=== PATIENT | female | born 1990 | race African-American/Black ===

== ENCOUNTER 2019-07-25 09:51 | Emergency (ER) | payer OTHER ==
[~2019-07-25] VITALS: Ht 162.6 cm; Wt 89.1 kg
--- NOTE | 2019-07-25 10:07 | NUR ---
DR PEÑA INFORMED OF PATIENT'S RESOLVED CHEST PAIN: NO ORDERS, NO LABS ORDERED
[2019-07-25] MEDS ORDERED: cephalexin 500mg capsule PO ONE (10:15)
[2019-07-25] MEDS ORDERED: predniSONE 20 mg tablet PO ONE (10:15)
[2019-07-25] MEDS ORDERED: CEPH500C5 PO (10:16)
[2019-07-25] MEDS ORDERED: PRED20TA PO (10:16)
[2019-07-25 10:26] VITALS: BP 148/68
--- NOTE | 2019-07-25 10:40 | NUR ---
PATIENT WILL FOLLOW UP WITH PMD AT [facility].
== END 2019-07-25 12:00 | disposition home or self-care (01) ==
LOC: ER 09:52
DX: S50.861A Insect bite (nonvenomous) of right forearm, initial encounter (principal); L03.113 Cellulitis of right upper limb; R07.89 Other chest pain; Z88.2 Allergy status to sulfonamides; Z88.8 Allergy status to other drugs, medicaments and biological substances; Z79.899 Other long term (current) drug therapy; W57.XXXA Bitten or stung by nonvenomous insect and other nonvenomous arthropods, initial encounter; Y93.89 Activity, other specified; Y92.89 Other specified places as the place of occurrence of the external cause; Y99.8 Other external cause status
CPT/HCPCS: 99283; J7512

== ENCOUNTER 2020-10-27 09:28 | Emergency (ER) | payer BC, OTHER ==
[~2020-10-27] VITALS: Ht 162.6 cm; Wt 89.0 kg
[2020-10-27 09:50] VITALS: BP 132/84
[2020-10-27] MEDS ORDERED: guaiFENesin ER 600mg tablet PO STA (09:53)
[2020-10-27] MEDS ORDERED: benzonatate 100mg capsule PO ONE (09:55)
[2020-10-27] MEDS ORDERED: GUAI-652 PO (11:01)
[2020-10-27] MEDS ORDERED: BENZ-16 PO (11:01)
== END 2020-10-27 11:11 | disposition home or self-care (01) ==
LOC: ER 09:29
DX: J06.9 Acute upper respiratory infection, unspecified (principal); B97.89 Other viral agents as the cause of diseases classified elsewhere; Z20.822 Contact with and (suspected) exposure to COVID-19; J45.909 Unspecified asthma, uncomplicated; Z88.2 Allergy status to sulfonamides; Z88.8 Allergy status to other drugs, medicaments and biological substances
CPT/HCPCS: 87635; 99283; C9803

== ENCOUNTER 2023-05-31 08:35 | Emergency (ER) | payer BC ==
[~2023-05-31] VITALS: Ht 162.6 cm; Wt 89.4 kg
[~2023-05-31 08:35] MED LIST: GUAI-652 PO
[2023-05-31] MEDS ORDERED: acetaminophen 325mg tablet PO ONE (08:40)
--- NOTE | 2023-05-31 08:57 | NUR ---
MSE COMPLETED BY DR LO
[2023-05-31] MEDS ORDERED: ipratropium/albuterol 3ml nebule NEB PRN (09:25)
[2023-05-31] MEDS ORDERED: ketorolac trometh. 30mg/ml inj. IM STA (09:27)
[2023-05-31] MEDS ORDERED: metoclopramide 10mg tablet PO ONE (09:30)
[2023-05-31] MEDS ORDERED: diphenhydrAMINE 25mg capsule PO ONE (09:30)
[2023-05-31] MEDS ORDERED: ROBDML PO (09:32)
[2023-05-31] MEDS ORDERED: PRED20TA PO (09:32)
[2023-05-31] MEDS ORDERED: IBUP-1984 PO (09:32)
[2023-05-31 09:51] VITALS: PULSE 75; RESP 16; O2SAT 99
[2023-05-31 09:57] VITALS: PULSE 81; RESP 1; O2SAT 99
[2023-05-31 10:25] VITALS: BP 134/76; PULSE 80; RESP 17; TEMP 98.8; O2SAT 99
== END 2023-05-31 10:43 | disposition home or self-care (01) ==
LOC: ER 08:36
DX: U07.1 COVID-19 (principal); R51.9 Headache, unspecified; J45.909 Unspecified asthma, uncomplicated; Z79.899 Other long term (current) drug therapy; Z88.2 Allergy status to sulfonamides; Z88.8 Allergy status to other drugs, medicaments and biological substances
CPT/HCPCS: 36415; 71045; 87811; 94640; 96372; 99284; J1885; Q0163; 94760

== ENCOUNTER → 2023-08-17 | Outpatient (CLI) | payer BC ==
[2023-08-17 11:26] LABS: BASOPHILS % (AUTO) 0.7 % (0-1); EOSINOPHILS # (AUTO) 0.2 X10'3 (0-0.9); HEMATOCRIT 35.5 % (35.0-45.0); HEMOGLOBIN 11.3 g/dl (12.0-16.0); LYMPHOCYTES # (AUTO) 2.4 X10'3 (1.1-4.8); LYMPHOCYTES % (AUTO) 39.2 % (21-51); MEAN CORPUSCULAR HEMOGLOBIN 23.9 PG (27.0-31.0); MEAN CORPUSCULAR HGB CONC 31.9 g/dL (33.0-36.5); MEAN CORPUSCULAR VOLUME 75.2 FL (78-98); MEAN PLATELET VOLUME 9.7 FL (7.4-10.4); MONOCYTES # (AUTO) 0.4 X10'3 (0-0.9); MONOCYTES % (AUTO) 6.9 % (2-12); NEUTROPHILS % (AUTO) 50.2 % (42-75); PLATELET COUNT 264 X10'3 (140-440); RED BLOOD COUNT 4.72 X10'6 (4.20-5.60); RED CELL DISTRIBUTION WIDTH 14.3 % (11.5-14.5)
[2023-08-17 11:53] LABS: POTASSIUM 4.1 MMOL/L (3.5-5.1); SODIUM 141 MMOL/L (135-145)
[2023-08-17 12:14] LABS: % IRON SATURATION 9 % (11-46); IRON 35 UG/DL (49-151); TOTAL IRON BINDING CAPACITY 381 UG/DL (259-388)
[2023-08-17 12:33] LABS: ALANINE AMINOTRANSFERASE 19 U/L (12-78); ALBUMIN 3.4 G/DL (3.4-5.0); ALKALINE PHOSPHATASE 40 IU/L (46-116); ANION GAP 9 (8-16); ASPARTATE AMINO TRANSFERASE 16 U/L (10-37); BILIRUBIN,TOTAL 0.2 MG/DL (0.1-1.0); BLOOD UREA NITROGEN 9 MG/DL (7-18); BUN/CREATININE RATIO 12.9 (10.0-20.0); CALCIUM 8.2 MG/DL (8.5-10.1); CHLORIDE 107 MMOL/L (99-107); CHOL/HDL RATIO 3.3 (0.00-4.99); CHOLESTEROL 180 MG/DL (0-200); GLUCOSE 95 MG/DL (70-104); HDL CHOLESTEROL 54 MG/DL (35-60); LDL CHOLESTEROL 102 MG/DL (50-100); TOTAL CARBON DIOXIDE 24.6 MMOL/L (24-32); TOTAL PROTEIN 6.7 G/DL (6.4-8.2); TRIGLYCERIDES 98 MG/DL (20-135); eGFR > 90 ML/MIN
[2023-08-17 13:09] LABS: THYROID STIMULATING HORMONE 1.37 ulU/ml (0.34-4.50)
== END | disposition home or self-care (01) ==
LOC: RAD 10:39
PROVIDERS: ATTEND Physician Assistant
DX: Z13.0 Encounter for screening for diseases of the blood and blood-forming organs and certain disorders involving the immune mechanism (principal); Z13.29 Encounter for screening for other suspected endocrine disorder; Z13.220 Encounter for screening for lipoid disorders; E04.2 Nontoxic multinodular goiter; D64.9 Anemia, unspecified; E66.9 Obesity, unspecified; M25.562 Pain in left knee
CPT/HCPCS: 36415; 73564; 76536; 80053; 80061; 83540; 83550; 84443; 85025